=== PATIENT | female | born 2000 | race Two or more races ===

== ENCOUNTER 2020-06-20 16:17 | Day surgery (SDC) | payer MEDICAID, OTHER ==
[~2020-06-20] VITALS: Ht 167.6 cm; Wt 77.1 kg
[2020-06-20 16:53] LABS: Basophils # (auto) 0.1 10 ^3/uL (0-0.2); Basophils % (auto) 0.4 % (0.0-2.0); Eosinophils # (auto) 0.2 10 ^3/uL (0-0.8); Eosinophils % (auto) 1.2 % (0.0-7.0); Hematocrit 43.3 % (36.0-46.0); Lymphocytes # (auto) 2.2 10 ^3/uL (0.4-5.4); Lymphocytes % (auto) 17.1 % (10.0-50.0); Mean Corpuscular Hemoglobin 30.3 pg (28.0-32.0); Mean Corpuscular Hgb Conc. 34.6 g/dL (32.0-36.0); Mean Corpuscular Volume 87.5 fL (80.0-100.0); Monocytes # (auto) 0.8 10 ^3/uL (0-1.3); Monocytes % (auto) 6.1 % (0.0-12.0); Neutrophils # (auto) 9.6 10 ^3/uL (1.6-8.6); Neutrophils % (auto) 75.2 % (37.0-80.0); Nucleated Red Blood Cells % 0.1 %; Red Blood Cells 4.95 10^6/uL (4.0-5.20); Red Cell Distribution Width 13.3 % (11.8-14.3); White Blood Cell 12.8 10^3/uL (4.4-10.8)
[2020-06-20] MEDS ORDERED: ONDANSETRON HCL 4 MG/2 ML VIAL IV ONE (17:15)
[2020-06-20] MEDS ORDERED: MORPHINE SULFATE INJECTION 2 MG/ML SYRG IV ONE (17:15)
[2020-06-20] MEDS ORDERED: SODIUM CHLORIDE 0.9% 1,000 ML IV ONE (17:45)
[2020-06-20] MEDS ORDERED: LIDOCAINE 1% HCL (LOCAL ANESTH.) INJ 20ML MDV ONE (19:44)
[2020-06-20] MEDS ORDERED: ONDANSETRON HCL 4 MG/2 ML VIAL ONE (19:47)
[2020-06-20] MEDS ORDERED: MIDAZOLAM HCL 2MG/2ML 2ml VIAL (1mg/ml) ONE (19:47)
[2020-06-20] MEDS ORDERED: fentaNYL CITRATE 100 MCG/2 ML VL ONE (19:47)
[2020-06-20] MEDS ORDERED: PROPOFOL 10 MG/ML 20 ML IV ONE (19:47)
[2020-06-20] MEDS ORDERED: SODIUM CHLORIDE LOCK 10 ML ONE (19:47)
[2020-06-20] MEDS ORDERED: MORPHINE SULFATE 4 MG/ML SYR/VIAL IV PRN ×2 (20:00→21:15)
[2020-06-20] MEDS ORDERED: HYDROmorphone HCL 2 MG/ML VL IV PRN ×2 (20:00→21:15)
[2020-06-20] MEDS ORDERED: KETOROLAC TROMETH 30 MG/ML 1ML VIAL IV ONE (20:00)
[2020-06-20] MEDS ORDERED: METOCLOPRAMIDE HCL 5MG/ml INJ 2ml VIAL IV PRN ×2 (20:00→21:15)
[2020-06-20] MEDS ORDERED: fentaNYL CITRATE 100 MCG/2 ML VL IV PRN (20:00)
[2020-06-20] MEDS ORDERED: OXYTOCIN 30 UNT in LACTATED RINGER'S 1,000 ML IV SCH (20:15)
[2020-06-20 20:26] LABS: INR 0.98 (0.9-1.15)
[2020-06-20] MEDS ORDERED: ceFAZolin 1GM/50ML 50 ML IV ONE (20:27)
[2020-06-20] MEDS ORDERED: RHO (D) IMMUNE GLOBULIN 300 MCG INJ IM PRN (21:00)
[2020-06-20 21:30] VITALS: BP 129/68
[2020-06-21] MEDS ORDERED: SODIUM CHLORIDE LOCK 10 ML ONE (08:08)
[2020-06-21] MEDS ORDERED: LIDOCAINE VISCOUS 2% 15ML UD ONE (08:08)
[2020-06-21] MEDS ORDERED: MIDAZOLAM HCL 5 MG/ML-1ML VIAL ONE (08:09)
[2020-06-21] MEDS ORDERED: fentaNYL CITRATE 100 MCG/2 ML VL ONE (08:09)
[2020-06-21] MEDS ORDERED: diphenhdrAMINE HCL 50 MG/1 ML VL ONE (08:09)
== END 2020-06-20 21:35 | disposition home or self-care (01) ==
LOC: EDBD 16:17 → ER 16:17 → SUR 16:18
PROVIDERS: ATTEND Obstetrics & Gynecology
DX: O46.8X1 Other antepartum hemorrhage, first trimester (principal); O03.4 Incomplete spontaneous abortion without complication; Z98.890 Other specified postprocedural states; Z79.899 Other long term (current) drug therapy; Z3A.09 9 weeks gestation of pregnancy; Z20.822 Contact with and (suspected) exposure to COVID-19
CPT/HCPCS: 36415; 59812; 76801; 76817; 84702; 85025; 85610; 86850; 86900; 86901; 87426; 96361; 96374; 96375; 99285; J0690; J2001; J2250; J2270; J2405; J2590; J2704; J3010; J7030; U0003

== ENCOUNTER → 2020-06-29 | Outpatient (CLI) | payer MEDICAID | END | disposition home or self-care (01) | LOC: LAB 14:47 | PROVIDERS: ATTEND Obstetrics & Gynecology | DX: Z98.890 Other specified postprocedural states (principal) | CPT/HCPCS: 36415; 84702 ==